=== PATIENT | female | born 1930 | race Caucasian/White ===

== ENCOUNTER 2017-03-29 14:10 | Observation (INO) | payer MEDICARE ==
[~2017-03-29] VITALS: Ht 152.4 cm; Wt 67.2 kg
[~2017-03-29 14:10] MED LIST: AMIODARONE HCL200 MG PO; ELIQUIS PO; METOPROLOL TART50 MG PO; Z.0.AMARYL1 MG PO; Z.0.ATORVASTATIN CA2 PO; Z.0.LOPRESSOR50 MG PO; Z.0.PLAVIX75 MG PO; [UNRECOGNIZED DRUG - OTHER] PO
[2017-03-29] MEDS ORDERED: ONDANSETRON HCL INJ 2 MG/ML VIAL IV ONE (14:45)
[2017-03-29] MEDS ORDERED: KETOROLAC TROMETHAMINE 30 MG/ML VIAL IV ONE (14:45)
[2017-03-29 15:43] LABS: BASOPHILS # (AUTO) 0.1 (0.0-0.1); BASOPHILS % 0.4 % (0.0-1.0); EOSINOPHILS % 0.1 % (0.0-6.0); HEMATOCRIT 47.4 % (34.2-44.1); HEMOGLOBIN 15.6 g/dL (12.0-16.0); LYMPHOCYTES # (AUTO) 0.5 (1.0-3.2); LYMPHOCYTES % 2.9 % (18.0-39.1); MEAN CORPUSCULAR HEMOGLOBIN 28.8 pg (28-32); MEAN CORPUSCULAR HGB CONC 32.9 g/dL (31-35); MEAN CORPUSCULAR VOLUME 87.6 fL (81-99); MONOCYTES # (AUTO) 0.4 (0.2-0.8); MONOCYTES % 2.4 % (4.4-11.3); NEUTROPHILS # (AUTO) 15.4 (2.1-6.9); NEUTROPHILS % 93.4 % (38.7-80.0); PLATELET COUNT 314 x10e3/uL (140-360); RED BLOOD COUNT 5.41 x10e6/uL (3.6-5.1); RED CELL DISTRIBUTION WIDTH 14.9 % (11.7-14.4)
[2017-03-29 15:49] LABS: INR 1.01; PARTIAL THROMBOPLASTIN TIME 30.5 seconds (23.8-35.5); PROTHROMBIN TIME 13.8 seconds (11.9-14.5)
[2017-03-29 15:56] LABS: ALBUMIN 3.8 g/dL (3.5-5.0); ALBUMIN/GLOBULIN RATIO 0.8 (0.8-2.0); CALCIUM 10.2 mg/dL (8.4-10.2); CREATININE, SERUM 1.7 mg/dL (0.57-1.11)
--- NOTE | 2017-03-29 15:57 | Diagnostic Imaging Report ---
EXAMINATION: Chest, CHEST SINGLE (PORTABLE) INDICATION: Chest pain COMPARISON: Chest 2 views 03/15/2017 FINDINGS: LINES: None. Heart: Normal cardiac silhouette. Vascular: The pulmonary vasculature is within normal limits. Atherosclerotic calcifications of the aortic arch. Mediastinum: No mediastinal, hilar, or axillary mass or lymphadenopathy. Lungs: No parenchymal mass. No focal consolidation. Bibasilar airspace opacities. Pleura: No pleural effusion. No pneumothorax. Bones: No acute osseous abnormality. Degenerative changes of the thoracic spine. Soft tissues: Normal. Impression: Bibasilar airspace opacities may represent atelectasis or developing pneumonia. Signed by: Dr. Pedro Cox M.D. on 03/29/2017 3:54 PM
[2017-03-29 16:17] LABS: BAND NEUTROPHILS % (MANUAL) 6 %; LYMPHOCYTES % (MANUAL) 5 % (19-48); MONOCYTES % (MANUAL) 2 % (3.4-9.0); NEUTROPHILS % (MANUAL) 87 % (40-74)
[2017-03-29 16:18] LABS: PLATELET ESTIMATE ADEQUATE; PLATELET MORPHOLOGY COMMENT NORMAL; RBC MORPHOLOGY COMMENT NORMAL
[2017-03-29] MEDS ORDERED: GLIMEPIRIDE1 MG PO (17:29)
[2017-03-29 17:32] LABS: BILIRUBIN,URINE NEGATIVE (NEGATIVE); KETONES,URINE NEGATIVE (NEGATIVE); LEUKOCYTE ESTERASE ,URINE NEGATIVE (NEGATIVE); NITRITE,URINE NEGATIVE (NEGATIVE); URINE UROBILINOGEN 0.2 mg/dL (0.2 - 1)
[2017-03-29 17:33] LABS: PROTEIN,URINE DIPSTICK 2+ (NEGATIVE)
[2017-03-29] MEDS ORDERED: METOPROLOL TART50 MG PO (17:33)
[2017-03-29] MEDS ORDERED: CHERATUSSIN AC118 ML PO (17:33)
[2017-03-29] MEDS ORDERED: PACERONE200 MG PO (17:33)
[2017-03-29] MEDS ORDERED: D3 DOTS2000 UNIT PO (17:33)
[2017-03-29 17:45] LABS: CLARITY,URINE HAZY (CLEAR); COLOR,URINE YELLOW (YELLOW); RBC,URINE 21-50 /HPF (0-5); WBC,URINE (MAN) 0-5 /HPF (0-5)
[2017-03-29] MEDS ORDERED: DEXTROSE 50% SYRINGE 50 ML IV PRN (18:30)
[2017-03-29] MEDS ORDERED: LEVOFLOXACIN 500MG/D5W 100ML IV SCH (18:30)
[2017-03-29] MEDS ORDERED: ALBUTEROL/IPRATROPIUM 3 ML NEB NEB PRN (18:30)
[2017-03-29] MEDS ORDERED: ONDANSETRON HCL INJ 2 MG/ML VIAL IV PRN (18:30)
[2017-03-29] MEDS ORDERED: MORPHINE SULFATE 5 MG/ML VIAL IV PRN (18:45)
[2017-03-29] MEDS ORDERED: LEVOFLOXACIN 500MG/D5W 100ML 100 ML IV SCH (19:00)
[2017-03-29] MEDS: SODIUM CHLORIDE 0.9% 1000ML 1,000 ML IV SCH (19:03)
[2017-03-29] MEDS: INSULIN REGULAR, HUMAN 100 UNIT/1 ML 3ML VIAL SQ SCH (20:59)
[2017-03-29 21:00] VITALS: BP 132/60
[2017-03-29 21:48] VITALS: BP 132/60
[2017-03-30] VITALS: BP 144/68
[2017-03-30 04:00] VITALS: BP 103/51
[2017-03-30 06:58] LABS: BASOPHILS # (AUTO) 0.1 (0.0-0.1); BASOPHILS % 0.4 % (0.0-1.0); EOSINOPHILS # (AUTO) 0.3 (0.0-0.4); EOSINOPHILS % 1.8 % (0.0-6.0); HEMATOCRIT 38.6 % (34.2-44.1); HEMOGLOBIN 12.4 g/dL (12.0-16.0); LYMPHOCYTES % 7.3 % (18.0-39.1); MEAN CORPUSCULAR HEMOGLOBIN 28.4 pg (28-32); MEAN CORPUSCULAR HGB CONC 32.1 g/dL (31-35); MEAN CORPUSCULAR VOLUME 88.5 fL (81-99); MONOCYTES # (AUTO) 1.3 (0.2-0.8); MONOCYTES % 9.2 % (4.4-11.3); NEUTROPHILS # (AUTO) 11.4 (2.1-6.9); NEUTROPHILS % 80.6 % (38.7-80.0); PLATELET COUNT 284 x10e3/uL (140-360); RED BLOOD COUNT 4.36 x10e6/uL (3.6-5.1); RED CELL DISTRIBUTION WIDTH 15.2 % (11.7-14.4)
[2017-03-30] MEDS: FAMOTIDINE 20 MG TAB PO SCH ×2 (07:30→17:33)
[2017-03-30] MEDS: INSULIN REGULAR, HUMAN 100 UNIT/1 ML 3ML VIAL SQ SCH ×4 (07:30→21:00)
[2017-03-30 07:51] VITALS: BP 118/58
[2017-03-30 08:03] LABS: ANION GAP 8.8 mmol/L (8-16); CALCIUM 8.9 mg/dL (8.4-10.2); CREATININE, SERUM 1.42 mg/dL (0.57-1.11); POTASSIUM 4.8 mmol/L (3.5-5.1)
[2017-03-30 08:21] LABS: CHOL/HDL RATIO 3.9 (3.0-3.6)
[2017-03-30] MEDS: AMIODARONE HCL 200 MG TAB PO SCH ×2 (08:37→17:33)
[2017-03-30] MEDS: METOPROLOL TARTRATE 50 MG TAB PO SCH ×2 (08:37→17:34)
[2017-03-30] MEDS: SODIUM CHLORIDE 0.9% 1000ML 1,000 ML IV SCH (08:42)
[2017-03-30] MEDS ORDERED: ENOXAPARIN INJ 80 MG/0.8 ML SYR SC SCH (09:00)
--- NOTE | 2017-03-30 09:03 | History and Physical ---
PRIMARY CARE PHYSICIAN: Dr. Ford UROLOGIST: Dr. Lanza CHIEF COMPLAINT: Left flank pain. HISTORY OF PRESENT ILLNESS: An 87-year-old woman with a history of diabetes mellitus, type 2, developing recent hematuria about a week ago, and now developing left flank pain. Went to [facility] urgent care facility. CT scan showed a 0.9 cm obstructive level midureteral calculous with moderate left hydroureteronephrosis. She was sent here to the hospital for admission. The patient also admits to some nausea at home, but no vomiting. No diarrhea. She does have some chronic cough, which she states is somewhat unchanged. No fevers at home. PAST MEDICAL HISTORY: Diabetes mellitus, type 2, atrial fibrillation, on anticoagulation, acute kidney injury, hypertension, coronary artery disease, status post 2 stents about 17 and 14 years ago, hypothyroidism, COPD, left ureteral calculous, hematuria. PAST SURGICAL HISTORY: Coronary stents and cataract surgery. ALLERGIES: PER ELECTRONIC MEDICAL RECORDS. FAMILY HISTORY/SOCIAL: The patient is . She has 3 children. No alcohol or illicits. Denies any cigarettes at this time. MEDICATIONS: Per electronic medical records. REVIEW OF SYSTEMS: Denies any dizziness or chest pain. PHYSICAL EXAMINATION VITAL SIGNS: Have been reviewed. GENERAL: A tired-appearing woman resting in bed. HEENT: Anicteric. Pupils respond to light. No oral lesions. CARDIOVASCULAR: Normal S1 and S2. LUNGS: Moderate breath sounds. ABDOMEN: Soft, nontender and nondistended. Left flank is tender to percussion. EXTREMITIES: No edema or calf tenderness. NEUROLOGICAL: Alert and oriented times 3. Moving all extremities. SKIN: Dry. PSYCHIATRIC: Normal affect. LABS: Reviewed. MEDICATIONS: Reviewed. ASSESSMENT AND PLAN: This is an 87-year-old woman with: 1. Left ureterolithiasis: Continue intravenous fluids. Urology consulted. This is a 0.9-cm stone, which is causing some hydroureteronephrosis. Will defer to urology. Continue hydration. 2. Bilateral nephrolithiasis. 3. Moderate left hydroureteronephrosis. 4. 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 She needs follow up outpatient. 5. Chronic obstructive pulmonary disease: X-ray shows findings which could suggest early pneumonia, although the patient's symptoms have not changed at home. Could possibly be early pneumonia. In light of the significant leukocytosis, will treat the patient with Levaquin. 6. Chronic atrial fibrillation: She is on anticoagulant of Eliquis. Will change to Lovenox b.i.d. here for any possible procedure, and when she leaves, she can be transitioned back to Eliquis. 7. Coronary artery disease with history of stents: Plan to discharge home with aspirin 81 mg. Stent placement years ago. 8. Overweight state/diabetes mellitus, type 2: Body mass index is 29.3. Will hold oral anti-glycemics and use sliding scale insulin. Will also obtain hemoglobin A1c and lipid panel. 9. Prophylaxis: Will use Pepcid while the patient is on anticoagulation. 10. Disposition: Hold anticoagulants this morning until seen by Dr. Lanza. Then we can use Lovenox b.i.d. for any possible procedure there may be tomorrow. It can be easily stopped. Also, will treat the patient with Levaquin for possible early pneumonia. Will use nebs p.r.n. for chronic obstructive pulmonary disease. Job#: [id number] ANNIE
[2017-03-30 11:39] VITALS: BP 117/56
[2017-03-30] MEDS ORDERED: IOPAMIDOL 610MG/1ML 300 MG/ML VIAL IV ONE (14:22)
[2017-03-30] MEDS ORDERED: BELLADONNA/OPIUM 60 MG SUPP PR ONE (14:23)
[2017-03-30] MEDS ORDERED: WATER STERILE 10 ML VIAL INJ PRN (15:45)
[2017-03-30 16:24] VITALS: BP 180/74
[2017-03-30] MEDS: CEFTRIAXONE SOD 1 GM VIAL IV SCH (17:33)
[2017-03-30] MEDS ORDERED: LIDOCAINE HCL 2% LOCAL INJ 5 ML SDV VIAL INJ ONE (17:51)
[2017-03-30] MEDS ORDERED: PROPOFOL IV EMULSION 10 MG/ML 20 ML VIAL ONE (17:51)
[2017-03-30] MEDS ORDERED: ONDANSETRON HCL INJ 2 MG/ML VIAL ONE (17:51)
[2017-03-30] MEDS ORDERED: DEXAMETHASONE SOD PHOS INJ 4 MG/ML VIAL ONE (17:51)
[2017-03-30] MEDS ORDERED: SEVOFLURANE INHAL SOLN 250 ML PEN BTL ONE (17:51)
[2017-03-30] MEDS ORDERED: FENTANYL CITRATE/PF 100MCG/2 ML INJ ONE (18:14)
[2017-03-30] MEDS ORDERED: LEVOFLOXACIN 500MG/D5W 100ML 100 ML IV SCH (19:00)
[2017-03-30 20:00] VITALS: BP 144/30
[2017-03-31] VITALS: BP 129/62
[2017-03-31] MEDS: SODIUM CHLORIDE 0.9% 1000ML 1,000 ML IV SCH ×3 (02:39→20:57)
[2017-03-31 04:00] VITALS: BP 114/55
[2017-03-31] MEDS ORDERED: SENNA LAX8.6 MG PO (06:01)
[2017-03-31] MEDS ORDERED: KEFLEX500 MG PO (06:01)
--- NOTE | 2017-03-31 06:40 | Progress Note ---
DATE: March 31, 2017 TIME: 5:56 a.m. OVERNIGHT: Feeling a little better. Underwent stent placement on the left. REVIEW OF SYSTEMS: Denies any dizziness or chest pain. PHYSICAL EXAMINATION VITAL SIGNS: Have been reviewed. GENERAL: A tired-appearing woman resting in bed. HEENT: Anicteric. CARDIOVASCULAR: Normal S1 and S2. LUNGS: Moderate breath sounds. ABDOMEN: Soft, nontender and nondistended. Left flank mildly tender. EXTREMITIES: No edema. SKIN: Dry. PSYCHIATRIC: Flat affect. NEUROLOGIC: Awake but confused. LABS: Reviewed. MEDICATIONS: Reviewed. ASSESSMENT: An 87-year-old woman with: 1. Left ureterolithiasis: Status post stent placement. 2. Bilateral nephrolithiasis. 3. Moderate left hydroureteronephrosis. 4. 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 5. Chronic obstructive pulmonary disease. 6. Possibly community-acquired pneumonia. 7. Chronic atrial fibrillation. 8. Coronary artery disease with history of stent. 9. Overweight state with diabetes mellitus, type 2: Body mass index 29.3. Hemoglobin A1c is 6.7, LDL 96 and triglycerides 106. PLAN 1. Patient is status post stent placement to the left. 2. Continue IV ceftriaxone. 3. Continue IV fluids. 4. Leukocytosis improving. 5. Acute kidney injury improving. 6. Obtain labs this morning. 7. Possible discharge later today. Job#: [id number] IA
[2017-03-31 07:05] LABS: BASOPHILS # (AUTO) 0.1 (0.0-0.1); BASOPHILS % 0.8 % (0.0-1.0); EOSINOPHILS # (AUTO) 0.5 (0.0-0.4); EOSINOPHILS % 3.9 % (0.0-6.0); HEMATOCRIT 42.8 % (34.2-44.1); HEMOGLOBIN 13.4 g/dL (12.0-16.0); LYMPHOCYTES # (AUTO) 1.1 (1.0-3.2); LYMPHOCYTES % 9.1 % (18.0-39.1); MEAN CORPUSCULAR HEMOGLOBIN 28.3 pg (28-32); MEAN CORPUSCULAR HGB CONC 31.3 g/dL (31-35); MEAN CORPUSCULAR VOLUME 90.3 fL (81-99); MONOCYTES % 8.5 % (4.4-11.3); NEUTROPHILS # (AUTO) 9.2 (2.1-6.9); PLATELET COUNT 306 x10e3/uL (140-360); RED BLOOD COUNT 4.74 x10e6/uL (3.6-5.1); RED CELL DISTRIBUTION WIDTH 15.4 % (11.7-14.4)
[2017-03-31 07:27] LABS: ANION GAP 12.8 mmol/L (8-16); CALCIUM 8.9 mg/dL (8.4-10.2); CREATININE, SERUM 1.22 mg/dL (0.57-1.11); POTASSIUM 4.8 mmol/L (3.5-5.1)
[2017-03-31] MEDS: FAMOTIDINE 20 MG TAB PO SCH ×2 (07:30→17:22)
[2017-03-31] MEDS: INSULIN REGULAR, HUMAN 100 UNIT/1 ML 3ML VIAL SQ SCH ×4 (07:30→20:57)
[2017-03-31 08:24] VITALS: BP 152/65
[2017-03-31] MEDS: AMIODARONE HCL 200 MG TAB PO SCH ×2 (09:00→17:22)
[2017-03-31] MEDS: METOPROLOL TARTRATE 50 MG TAB PO SCH ×2 (09:00→17:00)
--- NOTE | 2017-03-31 09:48 | Consultation ---
DATE OF CONSULTATION: March 31, 2017 REASON FOR CONSULTATION: Atrial fibrillation. HISTORY OF PRESENT ILLNESS: Ms. Thomas is an 87-year-old lady with a past medical history as listed below. Apparently, has been having hematuria and left flank pain. She was noted to have a midureter calculus. She underwent removal and stent placement yesterday. She tolerated the procedure well. She still has hematuria. She has a history of atrial fibrillation, and has been taking Eliquis. Patient states she takes Eliquis just once a day. If she takes it more than once a day, she has severe bleeding in her urine. She denies any chest pain, shortness of breath or palpitations. REVIEW OF SYSTEMS CONSTITUTIONAL: Has some fatigue and weakness. HEENT: No headache, blurry vision, seizures, or syncope. CARDIOVASCULAR: No chest pain, dyspnea, orthopnea, or PND. RESPIRATORY: No cough, fever or expectoration. GI: No abdominal pain, vomiting or diarrhea. : No dysuria, frequency or incontinence. Has hematuria. ALLERGIES: SEE LIST. HOME MEDICATIONS: See list. PAST MEDICAL HISTORY: History of atrial fibrillation, on Eliquis. History of CAD and stent placement in 2001 and 2003, history COPD, history of hypothyroidism, history of diabetes mellitus, history of hypertension, history of left ureteral calculous, history of dementia. SOCIAL HISTORY: Does not smoke or drink. Patient follows with Dr. Shrestha. PHYSICAL EXAMINATION GENERAL: Moderately built and nourished lady alert, oriented and not in any obvious distress. HEENT: Atraumatic. NECK: No JVD, bruit, thyromegaly, or lymphadenopathy. CARDIOVASCULAR: First and 2nd heart sounds. No murmurs, rubs or gallops appreciated. CHEST: Clear to auscultation. ABDOMEN: Soft and nontender. EXTREMITIES: No edema. LABS: WBC 11.9, hemoglobin 13.4, hematocrit 42.8, and platelets are 306,000. Sodium is 139, potassium 4.8, chloride 107, bicarb is 24, BUN is 26, creatinine 1.2. There is no EKG. IMPRESSION 1. Hematuria. 2. Status post ureteral calculus: Status post ureteral stent placement. 3. History of atrial fibrillation. 4. History of coronary artery disease and stent placement. 5. History of hypertension. 6. History of diabetes mellitus. 7. copd PLAN 1. Patient's heart rate is under control. 2. She still has hematuria. She is on Eliquis at home. Apparently, takes it just once a day. If she takes it more than once a day, she has severe hematuria. 3. Continue with current medications. 4. She can follow with Dr. Shrestha upon discharge. 5. I have discussed my impression and plan of management with the patient and she understands. As always, I appreciate and thank you very much for the referral. Job#: [id number] ANNIE SWANN
[2017-03-31 12:39] VITALS: BP 144/64
[2017-03-31] MEDS: CEFTRIAXONE SOD 1 GM VIAL IV SCH (15:30)
[2017-03-31 17:30] VITALS: BP 102/63
[2017-03-31 20:10] VITALS: BP 190/76
[2017-04-01] VITALS: BP 183/81
[2017-04-01 04:00] VITALS: BP 145/66
--- NOTE | 2017-04-01 06:13 | Diagnostic Imaging Report ---
CHEST SINGLE (PORTABLE), 04/01/2017 5:00 AM Technique: CHEST SINGLE (PORTABLE) Comparison: 03/29/2017 Clinical history: Shortness of breath Findings: See Impression Impression: 1. Stable mildly enlarged cardiomediastinal silhouette. 2. Mild bibasilar opacity, favor atelectasis/vascular crowding. 3. Stable blunting of left costophrenic angle. Signed by: Dr Lisa Irwin MD on 04/01/2017 6:10 AM
--- NOTE | 2017-04-01 06:29 | Progress Note ---
DATE: April 01, 2017 TIME: 6 a.m. OVERNIGHT: Mild flank discomfort. REVIEW OF SYSTEMS: Denies any dizziness or chest pain. PHYSICAL EXAMINATION VITAL SIGNS: Reviewed. GENERAL: A tired-appearing woman resting in bed. HEENT: Anicteric. CARDIOVASCULAR: Normal S1 and S2. LUNGS: Moderate breath sounds. ABDOMEN: Soft, nontender and nondistended. Left flank mildly tender. EXTREMITIES: No edema. SKIN: Dry. PSYCHIATRIC: Flat affect. NEUROLOGICAL: Awake and confused. LABS: Reviewed. MEDICATIONS: Reviewed. ASSESSMENT: An 87-year-old woman with: 1. Left ureterolithiasis: Status post stent placement. 2. Bilateral nephrolithiasis. 3. Moderate left hydroureteronephrosis. 4. 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 5. Chronic obstructive pulmonary disease. 6. Possible community-acquired pneumonia. 7. Chronic atrial fibrillation. 8. Coronary artery disease with history of stent. 9. Overweight state. 10. Diabetes mellitus: Body mass index 29.3. Hemoglobin A1c 6.7, LDL 96 and triglycerides 106. PLAN 1. Continue IV fluids. 2. Renal function improving. 3. All cultures remain negative. 4. Will obtain labs this morning. 5. Leukocytosis resolving. 6. Physical therapy. Job#: [id number] ANNIE
[2017-04-01 07:09] LABS: BASOPHILS # (AUTO) 0.1 (0.0-0.1); EOSINOPHILS # (AUTO) 0.2 (0.0-0.4); EOSINOPHILS % 1.7 % (0.0-6.0); HEMATOCRIT 41.7 % (34.2-44.1); HEMOGLOBIN 13.5 g/dL (12.0-16.0); LYMPHOCYTES # (AUTO) 0.8 (1.0-3.2); LYMPHOCYTES % 7.4 % (18.0-39.1); MEAN CORPUSCULAR HEMOGLOBIN 28.4 pg (28-32); MEAN CORPUSCULAR HGB CONC 32.4 g/dL (31-35); MEAN CORPUSCULAR VOLUME 87.8 fL (81-99); MONOCYTES % 9.3 % (4.4-11.3); NEUTROPHILS # (AUTO) 8.5 (2.1-6.9); NEUTROPHILS % 79.9 % (38.7-80.0); PLATELET COUNT 300 x10e3/uL (140-360); RED BLOOD COUNT 4.75 x10e6/uL (3.6-5.1); RED CELL DISTRIBUTION WIDTH 14.9 % (11.7-14.4)
[2017-04-01 07:26] LABS: ANION GAP 12.4 mmol/L (8-16); CALCIUM 9.3 mg/dL (8.4-10.2); CREATININE, SERUM 0.94 mg/dL (0.57-1.11); POTASSIUM 4.4 mmol/L (3.5-5.1)
[2017-04-01] MEDS: INSULIN REGULAR, HUMAN 100 UNIT/1 ML 3ML VIAL SQ SCH (07:30)
[2017-04-01 08:11] VITALS: BP 150/73
[2017-04-01] MEDS ORDERED: FUROSEMIDE INJ 10 MG/ML 4 ML VIAL IV ONE (09:00)
[2017-04-01] MEDS: AMIODARONE HCL 200 MG TAB PO SCH (09:15)
[2017-04-01] MEDS: METOPROLOL TARTRATE 50 MG TAB PO SCH (09:15)
[2017-04-01] MEDS: FAMOTIDINE 20 MG TAB PO SCH (09:15)
[2017-04-01 12:14] VITALS: BP 139/63
--- NOTE | 2017-04-24 09:17 | Discharge Summary ---
PRINCIPAL DIAGNOSES: 1. Left ureterolithiasis, status post stent placement. 2. Bilateral nephrolithiasis. 3. Moderate left hydroureteronephrosis. 4. 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 5. Chronic obstructive pulmonary disease. 6. Community-acquired pneumonia. 7. Chronic atrial fibrillation. 8. Coronary artery disease with history of stent. 9. Overweight state. 10. Diabetes mellitus type 2. Hemoglobin A1c 6.7, LDL 96, triglycerides 106. SECONDARY DIAGNOSIS: Diabetes mellitus type 2. CHIEF COMPLAINT: Left flank pain. HISTORY OF PRESENT ILLNESS: This is an 87-year-old woman developing now left flank pain. Please refer to the H and P for further details. HOSPITAL COURSE: Patient found to have left ureterolithiasis and bilateral nephrolithiasis as well as left hydroureteronephrosis, underwent left stent placement and ureteral stent placement. Patient also has stable aneurysmal dilatation of infrarenal abdominal aorta 3.4 cm and community-acquired pneumonia, treated with antibiotics and IV fluids. Patient Hemoglobin A1c was 6.7, LDL 96, and triglycerides 106 diabetes mellitus. Patient is transitioned home for further care. DISCHARGE MEDICATIONS: Per electronic medical record. FOLLOWUP: With primary care doctor in 1 week and urology in 2 weeks. CONDITION ON DISCHARGE: Stable and improving. DISCHARGE LOCATION: Home. ESTEFANY DIANE MD Job#: [id number]
--- NOTE | 2017-05-07 04:54 | Operative Report ---
DATE OF PROCEDURE: March 30, 2017 PREOPERATIVE DIAGNOSES 1. Left hydronephrosis due to stone. 2. Acute renal failure. POSTOPERATIVE DIAGNOSES 1. Left hydronephrosis due to stone. 2. Acute renal failure. 3. Grade 1 cystocele. 4. Grade 3 rectocele. 5. Atrophic (senile) vaginitis. OPERATIONS PERFORMED 1. Cystourethroscopy with bilateral ureteral catheterization and retrograde ureteropyelography (separate procedure performed for the acute renal insufficiency). 2. Interpretation of retrograde ureteropyelography. 3. Supervision of fluoroscopy. No radiologist present. 4. Cystourethroscopy with insertion of left indwelling ureteral stent (separate procedure performed to relieve the hydronephrosis). 5. Pelvic examination under anesthesia. ANESTHESIA: General. COMPLICATIONS: None. CLINICAL SUMMARY: Zulay Thomas is an 87-year-old woman with obstructing ureterolithiasis. She is brought for the above procedures. She is aware of the risks of bleeding, infection, injury to adjacent structures, need for additional procedures and elected to proceed. OPERATIVE PROCEDURE IN DETAIL: Informed consent was verified. Zulay Thomas was properly identified and taken to the operating room, placed on the cystoscopy table in supine position. Anesthesia was uneventfully begun. The patient was then carefully and gently repositioned in dorsal lithotomy position with all pressure points well padded. Her genitalia were prepared and draped in usual sterile fashion. A 22.5-Icelandic cystoscope sheath with the obturator in place was atraumatically inserted into the patient's urethra and the bladder was drained. Panendoscopy of the urinary bladder revealed no suspicious mucosal lesions, no tumors, no stones and no diverticula. Normally positioned and configured ureteral orifices were identified. Ureteral catheter was placed into each ureter and retrograde ureteropyelographies were performed. With cystoscopic and fluoroscopic guidance, a left-sided indwelling ureteral stent was then placed. This coiled in the patient's kidney as well as the patient's bladder. The retaining suture was cut short. Interpretation of retrograde ureteropyelography: Contrast was instilled in retrograde fashion bilaterally. The right side was unremarkable. There were no tumors, no stones and no diverticula. Unobstructed drainage was observed fluoroscopically. The left hand side was significant for a large 9-mm stone obstructing the left mid ureter with hydroureteronephrosis. The stent was in good position, coiled in the patient's kidney as well as the patient's bladder at the end of the case. The patient's bladder was then drained. Cystoscope was withdrawn. Pelvic examination under anesthesia revealed grade 1 cystocele with grade 3 rectocele. There was atrophic (senile) vaginitis. The patient was then uneventfully reversed from anesthesia and taken to recovery room in stable condition. There no were complications to the procedure. The patient tolerated the procedure well. Postoperative instructions were given. The patient eventually once medically stable will return to the operating room on an elective basis for left ureteroscopy with laser lithotripsy by Dr. Lanza. Job#: [id number] NEELAM
[2017-05-13] MEDS ORDERED: QUINAPRIL HCL20 MG PO (14:49)
== END 2017-04-01 14:51 | disposition home or self-care (01) ==
LOC: ER 14:10 → ERHOLD 18:43 → IMCU 20:53 → MED/SURG 03-31 20:05
PROVIDERS: ADMIT Internal Medicine; ATTEND Internal Medicine
DX: N13.2 Hydronephrosis with renal and ureteral calculous obstruction (principal); E11.9 Type 2 diabetes mellitus without complications; Z79.01 Long term (current) use of anticoagulants; I10 Essential (primary) hypertension; I25.10 Atherosclerotic heart disease of native coronary artery without angina pectoris; Z95.5 Presence of coronary angioplasty implant and graft; I71.4 Abdominal aortic aneurysm, without rupture; J44.9 Chronic obstructive pulmonary disease, unspecified; Z68.29 Body mass index [BMI] 29.0-29.9, adult; E66.3 Overweight; R31.9 Hematuria, unspecified; I48.2 Chronic atrial fibrillation; R80.9 Proteinuria, unspecified; R81 Glycosuria; N39.3 Stress incontinence (female) (male); N17.9 Acute kidney failure, unspecified; N81.10 Cystocele, unspecified; N95.2 Postmenopausal atrophic vaginitis
CPT/HCPCS: 36415 ×4; 52005; 52332; 71010 ×2; 74420; 80048 ×3; 80053; 80061; 81001; 82948 ×2; 83036; 83880; 83970; 84550; 85025 ×4; 85610; 85730; 87086 ×2; 93005; 97161; 99284; C2617; G0378 ×4; G8978; G8979; G8980; J0696 ×2; J1100; J1650; J1885; J1940; J2001; J2405 ×2; J7030 ×4; Q9967; J1956

== ENCOUNTER → 2017-04-29 | Outpatient (CLI) | payer MEDICARE ==
[~2017-04-29] MED LIST changes: +CHERATUSSIN AC118 ML PO; +D3 DOTS2000 UNIT PO; +GLIMEPIRIDE1 MG PO; +KEFLEX500 MG PO; +PACERONE200 MG PO; +SENNA LAX8.6 MG PO
--- NOTE | 2017-04-29 17:49 | Diagnostic Imaging Report ---
PROCEDURE:X-RAY ABDOMEN - KUB COMPARISON:[facility], CT, CT ABDOMEN/PELVIS WO, 03/27/2017, 13:52. INDICATIONS:CALCULI OF KIDNEY FINDINGS: See conclusion. CONCLUSION: 1. Left double-J internal ureteral stent in place. 2. 9 and 7 mm radiopaque densities projecting adjacent to the mid aspect of the stent likely represent ureteral calculi, as noted on CT. 3. Stable 6 mm nonobstructing calculus in the inferior pole of the right kidney. Grouped radiopaque densities in the mid aspect of the left kidney with the largest measuring 4 mm consistent with previously visualized nonobstructing calculi. 4. Nonobstructive bowel gas pattern. Raad Starkey M.D. Dictated by: Raad Starkey M.D. on 04/29/2017 at 17:57 Electronically approved by: Raad Starkey M.D. on 04/29/2017 at 17:57
== END ==
LOC: RAD 15:05
PROVIDERS: ATTEND Urology
DX: N20.0 Calculus of kidney (principal)
CPT/HCPCS: 74000

== ENCOUNTER → 2017-05-15 | Day surgery (SDC) | payer MEDICARE ==
[2017-05-13 14:51] LABS: BASOPHILS # (AUTO) 0.1 (0.0-0.1); BASOPHILS % 0.8 % (0.0-1.0); EOSINOPHILS # (AUTO) 0.2 (0.0-0.4); HEMATOCRIT 43.2 % (34.2-44.1); HEMOGLOBIN 13.7 g/dL (12.0-16.0); LYMPHOCYTES # (AUTO) 0.9 (1.0-3.2); LYMPHOCYTES % 7.7 % (18.0-39.1); MEAN CORPUSCULAR HEMOGLOBIN 28.5 pg (28-32); MEAN CORPUSCULAR HGB CONC 31.7 g/dL (31-35); MEAN CORPUSCULAR VOLUME 89.8 fL (81-99); MONOCYTES % 8.9 % (4.4-11.3); NEUTROPHILS # (AUTO) 9.3 (2.1-6.9); NEUTROPHILS % 80.1 % (38.7-80.0); PLATELET COUNT 305 x10e3/uL (140-360); RED BLOOD COUNT 4.81 x10e6/uL (3.6-5.1); RED CELL DISTRIBUTION WIDTH 15.6 % (11.7-14.4)
[2017-05-13 15:10] LABS: ANION GAP 14.3 mmol/L (8-16); CALCIUM 8.9 mg/dL (8.4-10.2); CREATININE, SERUM 1.21 mg/dL (0.57-1.11); POTASSIUM 4.3 mmol/L (3.5-5.1)
[~2017-05-15] MED LIST changes: +BELLADONNA/OPIUM 60 MG SUPP PR ONE; +CEFTRIAXONE SOD 1 GM VIAL ONE; +DEXAMETHASONE SOD PHOS INJ 4 MG/ML VIAL ONE; +FENTANYL CITRATE/PF 100MCG/2 ML INJ ONE; +IOPAMIDOL 610MG/1ML 300 MG/ML VIAL IV ONE; +LIDOCAINE HCL 2% LOCAL INJ 5 ML SDV VIAL INJ ONE; +ONDANSETRON HCL INJ 2 MG/ML VIAL ONE; +PROPOFOL IV EMULSION 10 MG/ML 20 ML VIAL ONE; +QUINAPRIL HCL20 MG PO; +SEVOFLURANE INHAL SOLN 250 ML PEN BTL ONE
--- NOTE | 2017-05-15 10:48 | Operative Report ---
DATE OF PROCEDURE: May 15, 2017 PREOPERATIVE DIAGNOSES 1. Indwelling calcified left ureteral stent. 2. Left ureteral calculus. 3. Left hydronephrosis. POSTOPERATIVE DIAGNOSES 1. Indwelling calcified left ureteral stent. 2. Left ureteral calculus. 3. Left hydronephrosis. PROCEDURES 1. Complicated removal of left ureteral stent (entirely separate procedure for complications secondary to ureteral stent). 2. Left-sided ureteroscopy with laser lithotripsy and stent placement (entirely separate procedure for the left ureteral calculus). 3. Left-sided ureteroscopy and stone extraction (entirely separate procedure with the explicit purpose of sending the stone for analysis, not required for laser lithotripsy). 4. Supervision of fluoroscopy. 5. Interpretation of retrograde pyelography. ANESTHESIA: General. ESTIMATED BLOOD LOSS: Minimal. COMPLICATIONS: None. INDICATIONS: Ms. Thomas is an 87-year-old female with greater than 1.5-cm left mid-ureteral stone burden. She and I had a long discussion regarding the alternatives, risks and benefits, including doing nothing, shock-wave lithotripsy, ureteroscopy, percutaneous surgery, open surgery. She voiced an understanding of the options, the alternatives, and the risks and benefits and elected to proceed. PROCEDURE IN DETAIL: Informed consent was obtained. The patient was taken to the operative suite and placed supine on the table and underwent general anesthesia by the anesthesia service. She was placed in the dorsal lithotomy position. She was sterilely prepped and draped in the standard fashion for cystoscopy. A 22.5-Upper Sorbian cystoscope was inserted per urethra. A normal urethra was noted. Panendoscopy of the bladder revealed no tumors and no stones. A stent that was encrusted was seen extruding from the left ureteral orifice. It was grasped. Attempt was made to remove the stent present but failed. A guidewire was inserted alongside the stent. The stent was removed intact. A ureteroscope was driven to the level of the offending ureteral stone. Utilizing a 365 micron laser fiber and a total of 16,937 joules, the stone was broken into small enough pieces to be basketed and extracted. All stone fragments were basketed and extracted. The ureteroscope was then driven to the level of the proximal ureter. A retrograde pyelogram was performed under fluoroscopy revealing no further stones, but still hydronephrosis. At this time, a ureteral stent was deployed with coil in the renal pelvis and a coil in the bladder. The patient's bladder was drained. She was awakened from anesthesia and transported to the recovery room in excellent condition. SUPERVISION OF FLUOROSCOPY AND INTERPRETATION OF RETROGRADE PYELOGRAPHY: I was present throughout the entire procedure and supervised the use of fluoroscopy. There was no radiologist present at any time during the procedure. Attention was turned toward the left ureteral orifice, which was catheterized with a ureteroscope. A retrograde pyelogram was performed revealing no further stones seen, interval removal of the stones and stent. Final images on the left side reveal a stent in adequate position. Job#: [id number]
== END | disposition home or self-care (01) ==
LOC: OR 07:10
PROVIDERS: ATTEND Urology
DX: N20.1 Calculus of ureter (principal); N13.30 Unspecified hydronephrosis; Z46.6 Encounter for fitting and adjustment of urinary device; E11.9 Type 2 diabetes mellitus without complications; I25.10 Atherosclerotic heart disease of native coronary artery without angina pectoris; I10 Essential (primary) hypertension; Z01.810 Encounter for preprocedural cardiovascular examination; Z01.812 Encounter for preprocedural laboratory examination; Z95.5 Presence of coronary angioplasty implant and graft
CPT/HCPCS: 36415 ×2; 52356; 80048; 82948; 85025; 88300; 93005; J0696; J1100; J2001; J2405; Q9967; 76000

== ENCOUNTER → 2018-01-15 | Day surgery (SDC) | payer MEDICARE ==
[2018-01-14 14:39] LABS: BASOPHILS # (AUTO) 0.1 (0.0-0.1); BASOPHILS % 0.9 % (0.0-1.0); EOSINOPHILS # (AUTO) 0.3 (0.0-0.4); EOSINOPHILS % 2.9 % (0.0-6.0); HEMATOCRIT 45.4 % (34.2-44.1); HEMOGLOBIN 14.5 g/dL (12.0-16.0); LYMPHOCYTES # (AUTO) 1.7 (1.0-3.2); LYMPHOCYTES % 17.9 % (18.0-39.1); MEAN CORPUSCULAR HEMOGLOBIN 28.4 pg (28-32); MEAN CORPUSCULAR HGB CONC 31.9 g/dL (31-35); MONOCYTES # (AUTO) 1.1 (0.2-0.8); MONOCYTES % 11.4 % (4.4-11.3); NEUTROPHILS # (AUTO) 6.4 (2.1-6.9); NEUTROPHILS % 66.5 % (38.7-80.0); PLATELET COUNT 254 x10e3/uL (140-360)
[2018-01-14 14:55] LABS: ANION GAP 15.2 mmol/L (8-16); CALCIUM 10.2 mg/dL (8.4-10.2); CREATININE, SERUM 1.05 mg/dL (0.57-1.11); POTASSIUM 4.2 mmol/L (3.5-5.1)
--- NOTE | 2018-01-14 14:59 | Diagnostic Imaging Report ---
EXAMINATION: CHEST 2 VIEWS INDICATION: Right kidney stone. Preop. COMPARISON: None FINDINGS: TUBES and LINES: None. LUNGS: Lungs are well inflated. Likely mild scarring at the left lung base. There is no evidence of pneumonia or pulmonary edema. PLEURA: No pleural effusion or pneumothorax. HEART AND MEDIASTINUM: Stable mildly enlarged cardiomediastinal silhouette. BONES AND SOFT TISSUES: No acute osseous lesion. Soft tissues are unremarkable. UPPER ABDOMEN: No free air under the diaphragm. IMPRESSION: Stable mildly enlarged cardiomediastinal silhouette. Likely mild scarring/atelectasis at the left lung base. Signed by: Dr. Steven Cintron M.D. on 01/14/2018 2:56 PM
[~2018-01-15] MED LIST changes: +AMARYL1 MG PO; +ASPIR 8181 MG PO; -BELLADONNA/OPIUM 60 MG SUPP PR ONE; +DEXAMETHASONE SOD PHOS INJ 4 MG/ML VIAL IV ONE; -DEXAMETHASONE SOD PHOS INJ 4 MG/ML VIAL ONE; +EPHEDRINE SULFATE INJ 50 MG/10 ML SYR IV ONE; -IOPAMIDOL 610MG/1ML 300 MG/ML VIAL IV ONE; +LIDOCAINE HCL 1% 2 ML AMP ONE; +NITROGLYCERIN; +ONDANSETRON HCL INJ 2 MG/ML VIAL IV ONE; -ONDANSETRON HCL INJ 2 MG/ML VIAL ONE; +PRAVASTATIN SOD20 MG PO; +PROPOFOL IV EMULSION 10 MG/ML 20 ML VIAL IV ONE; -PROPOFOL IV EMULSION 10 MG/ML 20 ML VIAL ONE; +SEVOFLURANE INHAL SOLN 250 ML PEN BTL INH ONE; -SEVOFLURANE INHAL SOLN 250 ML PEN BTL ONE
--- NOTE | 2018-01-15 07:26 | Diagnostic Imaging Report ---
EXAM: ABDOMEN-1VIEW (KUB) DATE: 01/15/2018 6:19 AM INDICATION: Preop kidney stone COMPARISON: 04/29/2017 radiograph and 03/27/2017 CT FINDINGS: Bowel gas pattern nonobstructive. Moderate stool present. There is a 6 mm calcification overlying the inferior right kidney. Left kidney largely secured by stool. Advanced degenerative changes spine present. IMPRESSION: Probable nonobstructing calculus right kidney. This corresponds with 2017 CT. Signed by: Dr. Geraldo Rosales MD on 01/15/2018 7:23 AM
[2018-01-15 09:30] VITALS: BP 146/63
--- NOTE | 2018-01-15 10:12 | Operative Report ---
DATE OF PROCEDURE: January 15, 2018 PREOPERATIVE DIAGNOSIS: Right kidney stone. POSTOPERATIVE DIAGNOSIS: Right kidney stone. PROCEDURES 1. Staged right-sided shock wave lithotripsy. 2. Supervision of fluoroscopy. ANESTHESIA: General. ESTIMATED BLOOD LOSS: Minimal. COMPLICATIONS: None. INDICATIONS: Ms. Thomas is a very pleasant female patient with a history of right-sided kidney stone. She and I had a long discussion about alternatives, risks and benefits, including doing nothing, shock wave lithotripsy, ureteroscopy, percutaneous surgery and open surgery. She voiced understanding of the options, alternatives, risks, and benefits and elected to proceed. PROCEDURE IN DETAIL: After informed consent was obtained, the patient was taken to the operative suite, placed supine and underwent general anesthesia by the anesthesia service. The stone was then localized in the X, Y and Z planes. A total of 3000 shocks at a maximum power setting of 6 were delivered to the stone. The patient tolerated the procedure well and was transported to the recovery room in excellent condition. SUPERVISION OF FLUOROSCOPY: I was present throughout the entire procedure and I supervised the use of fluoroscopy as no radiologist was present. Total radiation dose was 2.9 milligrades per meter squared. Job#: [id number] TN
== END | disposition home or self-care (01) ==
LOC: OR 05:50
PROVIDERS: ATTEND Urology
DX: N20.0 Calculus of kidney (principal); R31.0 Gross hematuria; N39.0 Urinary tract infection, site not specified; I10 Essential (primary) hypertension; N13.30 Unspecified hydronephrosis; R80.9 Proteinuria, unspecified; N39.46 Mixed incontinence; R31.29 Other microscopic hematuria; I25.10 Atherosclerotic heart disease of native coronary artery without angina pectoris; I48.91 Unspecified atrial fibrillation; E11.9 Type 2 diabetes mellitus without complications
CPT/HCPCS: 36415 ×2; 50590; 71046; 74018; 80048; 82948; 85025; 93005; J0696; J1100; J2001 ×2; J2405

== ENCOUNTER 2018-05-09 20:06 | Inpatient (IN) | payer MEDICARE ==
[~2018-05-09] VITALS: Ht 175.3 cm; Wt 67.4 kg
[~2018-05-09 20:06] MED LIST changes: -CEFTRIAXONE SOD 1 GM VIAL ONE; -DEXAMETHASONE SOD PHOS INJ 4 MG/ML VIAL IV ONE; -EPHEDRINE SULFATE INJ 50 MG/10 ML SYR IV ONE; -FENTANYL CITRATE/PF 100MCG/2 ML INJ ONE; -LIDOCAINE HCL 1% 2 ML AMP ONE; -LIDOCAINE HCL 2% LOCAL INJ 5 ML SDV VIAL INJ ONE; -ONDANSETRON HCL INJ 2 MG/ML VIAL IV ONE; -PROPOFOL IV EMULSION 10 MG/ML 20 ML VIAL IV ONE; -SEVOFLURANE INHAL SOLN 250 ML PEN BTL INH ONE
[2018-05-09] MEDS ORDERED: ASPIRIN 81 MG CHEW TAB PO ONE (20:30)
[2018-05-09 20:47] LABS: BASOPHILS # (AUTO) 0.1 (0.0-0.1); BASOPHILS % 0.9 % (0.0-1.0); EOSINOPHILS # (AUTO) 0.3 (0.0-0.4); EOSINOPHILS % 2.7 % (0.0-6.0); HEMATOCRIT 39.6 % (34.2-44.1); HEMOGLOBIN 13.1 g/dL (12.0-16.0); LYMPHOCYTES # (AUTO) 1.5 (1.0-3.2); LYMPHOCYTES % 13.9 % (18.0-39.1); MEAN CORPUSCULAR HEMOGLOBIN 28.9 pg (28-32); MEAN CORPUSCULAR HGB CONC 33.1 g/dL (31-35); MEAN CORPUSCULAR VOLUME 87.4 fL (81-99); MONOCYTES % 8.8 % (4.4-11.3); NEUTROPHILS % 72.4 % (38.7-80.0); PLATELET COUNT 366 x10e3/uL (140-360); RED BLOOD COUNT 4.53 x10e6/uL (3.6-5.1); RED CELL DISTRIBUTION WIDTH 14.6 % (11.7-14.4)
[2018-05-09 20:54] LABS: INR 1.05; PROTHROMBIN TIME 14.7 seconds (11.9-14.5)
[2018-05-09 20:55] LABS: PARTIAL THROMBOPLASTIN TIME 40.6 seconds (23.8-35.5)
[2018-05-09 21:01] LABS: BILIRUBIN,URINE NEGATIVE (NEGATIVE); KETONES,URINE TRACE (NEGATIVE); LEUKOCYTE ESTERASE ,URINE NEGATIVE (NEGATIVE); NITRITE,URINE NEGATIVE (NEGATIVE); PROTEIN,URINE DIPSTICK 2+ (NEGATIVE); URINE UROBILINOGEN 4 mg/dL (0.2 - 1)
[2018-05-09 21:04] LABS: ALBUMIN 2.7 g/dL (3.5-5.0); ALBUMIN/GLOBULIN RATIO 0.6 (0.8-2.0); ANION GAP 14.1 mmol/L (8-16); CALCIUM 9.7 mg/dL (8.4-10.2); CREATININE, SERUM 1.17 mg/dL (0.57-1.11); POTASSIUM 4.1 mmol/L (3.5-5.1)
[2018-05-09 21:07] LABS: BACTERIA,URINE MANY /HPF; CLARITY,URINE HAZY (CLEAR); COLOR,URINE YELLOW (YELLOW); EPITHELIAL CELLS,URINE MANY /LPF; MUCUS,URINE MODERATE (RARE)
[2018-05-09 21:13] LABS: CREATINE KINASE MB 1.4 ng/mL (0-5.0)
[2018-05-09] MEDS ORDERED: AMIODARONE 900MG 500 ML IV SCH (21:30)
[2018-05-09] MEDS ORDERED: AMIODARONE HCL 150MG 100 ML IV ONE (21:30)
[2018-05-09] MEDS ORDERED: DOXYCYCLINE HY100 MG PO (21:59)
--- NOTE | 2018-05-09 22:10 | Diagnostic Imaging Report ---
EXAM: CHEST SINGLE (PORTABLE), AP 1 view INDICATION: Shortness of breath, chest pressure COMPARISON: None FINDINGS: LINES/TUBES: None LUNGS: New airspace opacities in the left mid and upper lung. PLEURA: No effusions or pneumothorax. HEART AND MEDIASTINUM: Stable enlargement of the cord and mediastinal silhouette. BONES AND SOFT TISSUES: No acute findings. IMPRESSION: New airspace opacities in the left lung suspicious for pneumonia. Signed by: Dr. Tamar Garnica M.D. on 05/09/2018 10:07 PM
[2018-05-09] MEDS ORDERED: CEFTRIAXONE SOD 1 GM/NS 50 ML 50 ML IV SCH (22:15)
[2018-05-09] MEDS ORDERED: DEXTROSE 50% SYRINGE 50 ML IV PRN (22:30)
[2018-05-09] MEDS ORDERED: ONDANSETRON HCL INJ 2MG/ML 2ML 2 MG/ML VIAL IV PRN (22:30)
[2018-05-09] MEDS ORDERED: SODIUM CHLORIDE 0.9% 1000ML 1,000 ML IV SCH (22:30)
[2018-05-09] MEDS: AZITHROMYCIN 500MG/NS 250 ML 250 ML IV SCH (23:50)
[2018-05-10] VITALS (21 sets, daily range): BP systolic 102–149; BP diastolic 53–106
[2018-05-10] MEDS ORDERED: AMIODARONE 900MG 500 ML IV SCH (03:31)
[2018-05-10 06:03] LABS: CREATINE KINASE MB 1.4 ng/mL (0-5.0)
[2018-05-10 06:10] LABS: BASOPHILS # (AUTO) 0.2 (0.0-0.1); BASOPHILS % 0.9 % (0.0-1.0); EOSINOPHILS # (AUTO) 0.3 (0.0-0.4); EOSINOPHILS % 1.7 % (0.0-6.0); HEMATOCRIT 38.1 % (34.2-44.1); HEMOGLOBIN 13.4 g/dL (12.0-16.0); LYMPHOCYTES # (AUTO) 1.2 (1.0-3.2); LYMPHOCYTES % 6.9 % (18.0-39.1); MEAN CORPUSCULAR HEMOGLOBIN 30.3 pg (28-32); MEAN CORPUSCULAR HGB CONC 35.2 g/dL (31-35); MEAN CORPUSCULAR VOLUME 86.2 fL (81-99); MONOCYTES # (AUTO) 1.1 (0.2-0.8); MONOCYTES % 6.8 % (4.4-11.3); NEUTROPHILS # (AUTO) 13.8 (2.1-6.9); PLATELET COUNT 385 x10e3/uL (140-360); RED BLOOD COUNT 4.42 x10e6/uL (3.6-5.1); RED CELL DISTRIBUTION WIDTH 14.9 % (11.7-14.4)
--- NOTE | 2018-05-10 06:15 | Diagnostic Imaging Report ---
EXAM: CHEST SINGLE (PORTABLE), AP 1 view INDICATION: Pneumonia, shortness of breath COMPARISON: None FINDINGS: LINES/TUBES: None LUNGS: Increasing airspace opacity in the left mid and lower lung. Interstitial edema and right lower lobe atelectasis. PLEURA: No effusions or pneumothorax. HEART AND MEDIASTINUM: Stable enlargement of the cardiomediastinal silhouette. BONES AND SOFT TISSUES: No acute findings. IMPRESSION: Increasing opacity in the left lung concerning for worsening pneumonia. Signed by: Dr. Tamar Garnica M.D. on 05/10/2018 6:12 AM
[2018-05-10 07:01] LABS: ANION GAP 15.4 mmol/L (8-16); CALCIUM 9.4 mg/dL (8.4-10.2); CREATININE, SERUM 1.09 mg/dL (0.57-1.11); POTASSIUM 4.4 mmol/L (3.5-5.1)
[2018-05-10 07:03] LABS: CHOL/HDL RATIO 3.1 (3.0-3.6)
[2018-05-10] MEDS ORDERED: INSULIN REGULAR, HUMAN 100 UNIT/1 ML 3ML VIAL SQ SCH (07:30)
[2018-05-10] MEDS: QUINAPRIL HCL 20 MG TAB PO SCH (08:38)
[2018-05-10] MEDS: ASPIRIN 81 MG ENTERIC COATED PO SCH (08:38)
[2018-05-10] MEDS: METOPROLOL TARTRATE 50 MG TAB PO SCH ×2 (08:38→17:00)
[2018-05-10] MEDS: PRAVASTATIN 20 MG TAB PO SCH (08:38)
[2018-05-10] MEDS ORDERED: ACETAMINOPHEN 325 MG TAB PO PRN (11:30)
--- NOTE | 2018-05-10 11:44 | NUR ---
Patient sitting at side of bed. states she is more comfortable sitting up. this morning, pt ambulated to bathroom and returned to sitting at side of bed. Patient slide off side of bed (with glider and chux) to floor. witnessed slide pt denied pain or any injuries from fall. pt assisted back to bed. notified manager law, Sebastián and attending Dr. Olvera.
--- NOTE | 2018-05-10 11:47 | NUR ---
blood glucose elevated this morning and at lunch. pt refusing insulin ssi as she takes po medication to manage diabetes at home. Dr. Olvera notified and new orders received. will continue to monitor bg and patient status.
[2018-05-10] MEDS: GLIMEPIRIDE 2 MG TAB PO SCH (11:52)
[2018-05-10] MEDS: CEFEPIME 1GM/NS 0.9% 50 ML 50 ML IV SCH ×2 (11:52→22:40)
[2018-05-10] MEDS: ALBUTEROL/IPRATROPIUM 3 ML NEB NEB PRN ×2 (12:10→15:12)
[2018-05-10] MEDS: LACTOBACILLUS ACIDOPHILUS CAPSULE PO SCH (17:00)
[2018-05-10] MEDS: AMIODARONE HCL 200 MG TAB PO SCH (21:33)
[2018-05-10] MEDS: AZITHROMYCIN 500MG/NS 250 ML 250 ML IV SCH (22:40)
[2018-05-10] MEDS ORDERED: SODIUM CHLORIDE 0.9% 250ML 250 ML ONE (22:41)
--- NOTE | 2018-05-11 00:08 | Progress Note ---
DATE: May 10, 2018 CARDIOLOGY PROGRESS NOTE SUBJECTIVE: No major events overnight, converted to sinus rhythm. OBJECTIVE: VITAL SIGNS: Temperature 97.4, pulse 87, respiratory rate 24, blood pressure 102/92, satting 100% on 2 liters nasal cannula. GENERAL: Elderly white female, in no acute distress. CARDIOVASCULAR: Regular rate and rhythm. No murmurs, rubs, or gallops. LUNGS: Clear to auscultation bilaterally. ABDOMEN: Soft, nontender, nondistended. NEURO AND PSYCH: Alert and oriented to person, place, and time. Normal affect. LABORATORY DATA: Reviewed. TELEMETRY DATA: Reviewed. IMAGING DATA: Reviewed. ASSESSMENT AND PLAN: Atrial fibrillation with rapid ventricular response, patient converted to sinus rhythm. Echocardiogram is still pending. overlock elastic attacher to oral amiodarone. Continue treatment of infectious issues per primary team. Will evaluate LV function and assess need for further cardiovascular studies at that time. Thank you for this consult. Will continue to follow. Job#: [id number]
--- NOTE | 2018-05-11 00:40 | NUR ---
REPORT CALLED TO TETE LONG, TRANSFERRED TO ROOM 202 PER W/C
--- NOTE | 2018-05-11 00:45 | NUR ---
received pt from ICU to room 202 via W/C, no c/o pain or discomfort, resp even and unlabored, able to verbalize needs, bed in lowest and locked position and call light in reach, instructed to call when assistance needed
[2018-05-11 04:00] VITALS: BP 117/58
[2018-05-11 05:31] LABS: BASOPHILS # (AUTO) 0.1 (0.0-0.1); BASOPHILS % 0.8 % (0.0-1.0); EOSINOPHILS # (AUTO) 0.2 (0.0-0.4); EOSINOPHILS % 1.5 % (0.0-6.0); HEMATOCRIT 35.9 % (34.2-44.1); HEMOGLOBIN 11.3 g/dL (12.0-16.0); LYMPHOCYTES # (AUTO) 1.1 (1.0-3.2); MEAN CORPUSCULAR HEMOGLOBIN 27.8 pg (28-32); MEAN CORPUSCULAR HGB CONC 31.5 g/dL (31-35); MEAN CORPUSCULAR VOLUME 88.4 fL (81-99); MONOCYTES # (AUTO) 1.1 (0.2-0.8); MONOCYTES % 7.3 % (4.4-11.3); NEUTROPHILS # (AUTO) 12.6 (2.1-6.9); NEUTROPHILS % 81.8 % (38.7-80.0); PLATELET COUNT 350 x10e3/uL (140-360); RED BLOOD COUNT 4.06 x10e6/uL (3.6-5.1); RED CELL DISTRIBUTION WIDTH 14.6 % (11.7-14.4)
[2018-05-11 05:58] LABS: ANION GAP 12.2 mmol/L (8-16); BLOOD UREA NITROGEN 21 mg/dL (7-26); BUN/CREATININE RATIO 24 (6-25); CARBON DIOXIDE 23 mmol/L (22-29); CHLORIDE 104 mmol/L (98-107); CREATININE, SERUM 0.87 mg/dL (0.57-1.11); EST GLOMERULAR FILTRATION RATE > 60 ML/MIN (60-); GLUCOSE 108 mg/dL (74-118); POTASSIUM 4.2 mmol/L (3.5-5.1); SODIUM 135 mmol/L (136-145)
--- NOTE | 2018-05-11 07:12 | NUR ---
pt sitting at bedside, no resp distress noted at this time, pt able to make needs known , call light in reach will cont to monitor.
[2018-05-11] MEDS: GLIMEPIRIDE 2 MG TAB PO SCH (08:00)
[2018-05-11 08:35] VITALS: BP 136/63
[2018-05-11] MEDS: QUINAPRIL HCL 20 MG TAB PO SCH (09:00)
[2018-05-11] MEDS: PRAVASTATIN 20 MG TAB PO SCH (09:00)
[2018-05-11] MEDS: LACTOBACILLUS ACIDOPHILUS CAPSULE PO SCH ×2 (09:00→16:43)
[2018-05-11] MEDS: METOPROLOL TARTRATE 50 MG TAB PO SCH ×3 (09:00→22:57)
[2018-05-11] MEDS: ASPIRIN 81 MG ENTERIC COATED PO SCH (09:00)
[2018-05-11] MEDS: CEFEPIME 1GM/NS 0.9% 50 ML 50 ML IV SCH ×2 (11:30→22:57)
[2018-05-11 11:36] VITALS: BP 118/68
[2018-05-11] MEDS ORDERED: IPRATROPIUM BROMIDE 0.02% 2.5 ML NEB NEB PRN (14:00)
--- NOTE | 2018-05-11 15:20 | NUR ---
Blowing Weasand to bedside to discuss plan of care with patient/family. CM/SW role and care transitions discussed. Anticipated discharge plan discussed along with duration of care. CM/SW discussed patients right to make decisions in care. CM/SW work hours given. Patient lives: with daughter Yamel Arango Admit/Transfer: thru ED POA/Emergency contact: Yamel Arango [phone] Current/Previous Home Health: none; states she never needed it and doesn't think she needs it now PCP/Follow-up Care: [facility]. CM urged pt to make a follow up appointment within 7 days of discharge from hospital. Current/Previous DME: none; states she may need a walker now Other Services: none Employment Status: retired Areas of Concerns: none at this time Referral Needs: may need home health Education Needs: medical management IMM/RYAN given and signed (if applicable): none at this time Goal for discharge: home; daughter will provide transportation CM/SW left business card at the bedside with contact information. Name and number was also written on the patients whiteboard. Patient verbalized understanding of discussion. CM will follow-up with ongoing discharge and transition of care needs.
[2018-05-11 15:47] VITALS: BP 110/75
--- NOTE | 2018-05-11 19:22 | NUR ---
report given to oncoming nurse
[2018-05-11 20:00] VITALS: BP 115/65
[2018-05-11] MEDS: AMIODARONE HCL 200 MG TAB PO SCH (21:17)
[2018-05-11] MEDS: AZITHROMYCIN 500MG/NS 250 ML 250 ML IV SCH (23:55)
[2018-05-12] VITALS: BP 100/58
[2018-05-12 04:00] VITALS: BP 124/80
[2018-05-12 04:53] LABS: BASOPHILS # (AUTO) 0.1 (0.0-0.1); BASOPHILS % 0.9 % (0.0-1.0); EOSINOPHILS # (AUTO) 0.5 (0.0-0.4); EOSINOPHILS % 4.6 % (0.0-6.0); HEMATOCRIT 37.1 % (34.2-44.1); HEMOGLOBIN 11.8 g/dL (12.0-16.0); LYMPHOCYTES # (AUTO) 1.2 (1.0-3.2); LYMPHOCYTES % 9.9 % (18.0-39.1); MEAN CORPUSCULAR HEMOGLOBIN 28.3 pg (28-32); MEAN CORPUSCULAR HGB CONC 31.8 g/dL (31-35); MONOCYTES # (AUTO) 0.9 (0.2-0.8); MONOCYTES % 7.3 % (4.4-11.3); NEUTROPHILS # (AUTO) 8.9 (2.1-6.9); NEUTROPHILS % 75.8 % (38.7-80.0); PLATELET COUNT 378 x10e3/uL (140-360); RED BLOOD COUNT 4.17 x10e6/uL (3.6-5.1); RED CELL DISTRIBUTION WIDTH 14.6 % (11.7-14.4)
[2018-05-12 05:34] LABS: FREE T4 (FREE THYROXINE) 1.09 ng/dL (0.9-1.8); THYROID STIMULATING HORMONE 0.408 uIU/mL (0.350-4.940)
[2018-05-12] MEDS: METOPROLOL TARTRATE 50 MG TAB PO SCH (05:43)
[2018-05-12 08:25] VITALS: BP 110/70
--- NOTE | 2018-05-12 09:10 | NUR ---
CM SPOKE TO PATIENT AT BEDSIDE REGARDING IMM LETTER. IMM LETTER GIVEN WITH EXPLANATION. ORIGINAL SIGNED AND PLACED IN CHART; COPY OF ORIGINAL DOCUMENT GIVEN TO PATIENT AT BEDSIDE AND PLACED IN CARE TRANSITION FOLDER. CM CONTACT INFORMATION GIVEN TO PATIENT FOR ANY NEEDS OR CONCERNS. PATIENT WITH NO FURTHER QUESTIONS
[2018-05-12] MEDS: GLIMEPIRIDE 2 MG TAB PO SCH (09:20)
[2018-05-12] MEDS: QUINAPRIL HCL 20 MG TAB PO SCH (09:20)
[2018-05-12] MEDS: PRAVASTATIN 20 MG TAB PO SCH (09:20)
[2018-05-12] MEDS: AMIODARONE HCL 200 MG TAB PO SCH (09:20)
[2018-05-12] MEDS: ASPIRIN 81 MG ENTERIC COATED PO SCH (09:20)
[2018-05-12] MEDS: LACTOBACILLUS ACIDOPHILUS CAPSULE PO SCH (09:20)
[2018-05-12 11:09] VITALS: BP 110/70
[2018-05-12] MEDS: CEFEPIME 1GM/NS 0.9% 50 ML 50 ML IV SCH (11:44)
[2018-05-12 11:49] VITALS: BP 120/71
[2018-05-12] MEDS ORDERED: METOPROLOL SUCCINATE 50 MG TAB XL PO ONE (12:30)
[2018-05-12] MEDS ORDERED: TOPROL XL50 MG PO (12:43)
--- NOTE | 2018-05-12 13:23 | Discharge Summary ---
PRIMARY CARE DOCTOR: Dr. Carlos Jones with [facility]. FINAL DIAGNOSIS: Left-sided community-acquired pneumonia, failing outpatient oral doxycycline. SECONDARY DIAGNOSES 1. Atrial fibrillation with rapid ventricular response. 2. Hypertension. 3. Diabetes. 4. Coronary artery disease. 5. Severe aortic stenosis. CONSULTANTS: Dr. Ansari, cardiology. PROCEDURES/STUDIES PERFORMED: Echocardiogram with EF of 40% to 45%. HISTORY: Per H&P. HOSPITAL COURSE: Patient was started on cefepime. She did well. Finally her white count came down to 11.7. As far as her AFib with RVR, status post amiodarone drip per Cardiology, subsequently patient was switched to oral amiodarone. Since this is now keeping her in sinus rhythm, I will go ahead and now continue amiodarone pills. I had to increase her metoprolol for rate control. In order to have some blood pressure to work with, I will go ahead and decrease her quinapril from 20 mg daily to 10 mg daily. Patient refused anticoagulation for her atrial fibrillation, which is not new. I have informed her primary care doctor about her severe aortic stenosis. Patient should have a followup with [facility] cardiologists. Patient will get Levaquin for five more days to complete her course. Again, she received cefepime while here. Patient was seen and examined today. It took 35 minutes total to discharge this patient including updating the daughter at the bedside. CONDITION ON DISCHARGE: Improved. DISCHARGE MEDICATIONS: Please see medication reconciliation form. Patient will follow up with her primary care doctor in one week. RUDY CORREA M.D. Job#: [id number] EV cc:CARLOS JONES MD
--- NOTE | 2018-05-12 13:45 | NUR ---
PT DISCHARGED HOME WITH PRESCRIPTIONS AND WRITTEN INSTRUCTIONS. D/C TEACHING DONE AND PT VERBALIZES UNDERSTANDING. IV D/C, NO REDNESS OR SWELLING NOTED ON SITE. TRANSPORTED VIA W/C BY STAFF TO DAUGHTER CAR.NO DISTRESS NOTED.
[2018-05-13] MEDS ORDERED: QUINAPRIL HCL 20 MG TAB PO SCH (09:00)
== END 2018-05-12 13:29 | disposition home or self-care (01) | DRG 190 ==
LOC: ER 20:06 → ERHOLD 22:39 → ICU 05-10 00:58 → MED/SURG2 05-11 00:13
PROVIDERS: ADMIT Internal Medicine; ATTEND Internal Medicine
DX: J44.0 Chronic obstructive pulmonary disease with (acute) lower respiratory infection (principal); J18.9 Pneumonia, unspecified organism; N39.0 Urinary tract infection, site not specified; I48.91 Unspecified atrial fibrillation; E11.9 Type 2 diabetes mellitus without complications; I25.10 Atherosclerotic heart disease of native coronary artery without angina pectoris; I35.0 Nonrheumatic aortic (valve) stenosis; I12.9 Hypertensive chronic kidney disease with stage 1 through stage 4 chronic kidney disease, or unspecified chronic kidney disease; E11.22 Type 2 diabetes mellitus with diabetic chronic kidney disease; N18.9 Chronic kidney disease, unspecified; Z79.84 Long term (current) use of oral hypoglycemic drugs; Z79.82 Long term (current) use of aspirin; E78.5 Hyperlipidemia, unspecified; Z95.5 Presence of coronary angioplasty implant and graft; E03.9 Hypothyroidism, unspecified; I25.2 Old myocardial infarction; Z87.891 Personal history of nicotine dependence
CPT/HCPCS: 36415; 71045; 80048; 80053; 80061; 81001; 82550; 82553; 82948; 83880; 84439; 84443; 84484; 85025; 85610; 85730; 87040; 87086; 87186; 93005; 93306; 94640; 96365; 99284; J0456; J0692; J0696; J7030; J7050